=== PATIENT | male | born 1960 | race Caucasian/White ===

== ENCOUNTER 2018-05-04 10:32 | Outpatient (CLI) | payer BC ==
--- NOTE | 2018-05-04 13:37 | RAD ---
TWO VIEW CHEST: Comparison: 03-14-16 Indication: Acute bronchitis. FINDINGS: There is no lobar consolidation, pneumothorax, or effusion. Cardiac silhouette is normal in size. IMPRESSION: NO focal consolidation. POS: [facility]
== END 2018-05-04 10:33 | disposition home or self-care (01) ==
LOC: SCSRAD 10:32
PROVIDERS: ATTEND Family Medicine
DX: J20.9 Acute bronchitis, unspecified (principal)
CPT/HCPCS: 71046

== ENCOUNTER 2020-09-12 08:46 | Outpatient (CLI) | payer BC | END 2020-09-12 08:47 | disposition home or self-care (01) | LOC: BICULT 08:46 | PROVIDERS: ATTEND Family Medicine | DX: R10.11 Right upper quadrant pain (principal) | CPT/HCPCS: 76705 ==

== ENCOUNTER 2022-01-15 08:06 | Emergency (ER) | payer BC ==
[2022-01-15] MEDS ORDERED: diphenhydrAMINE 12.5 MG/5 ML UDCUP ONE (09:15)
[2022-01-15] MEDS ORDERED: diphenhydrAMINE 50 MG/ML VIAL ONE (09:18)
[2022-01-15] MEDS ORDERED: Metoclopramide HCl 10 MG/2 ML VIAL ONE (09:18)
[2022-01-15] MEDS ORDERED: Ketorolac Tromethamine 30 MG/ML VIAL ONE (09:20)
== END 2022-01-15 11:00 | disposition home or self-care (01) ==
LOC: ERS 08:06
DX: R51.9 Headache, unspecified (principal); I10 Essential (primary) hypertension; E78.5 Hyperlipidemia, unspecified; F17.200 Nicotine dependence, unspecified, uncomplicated; Z79.82 Long term (current) use of aspirin; Z79.899 Other long term (current) drug therapy
CPT/HCPCS: 70450; 96365; 96375; J1200; J1885; J2765; Q0163